=== PATIENT | female | born 1945 | race Caucasian/White ===

== ENCOUNTER 2023-11-25 07:00 | Day surgery (SDC) | payer OTHER ==
[2023-11-21 15:42] LABS: Absolute Basophils 0.1 K/uL (0-0.5); Absolute Eosinophils 0.2 K/uL (0-0.5); Absolute Lymphocytes (CBC) 1.6 K/uL (0.7-4.9); Absolute Monocytes 0.4 K/uL (0.1-1.3); Absolute Neutrophil 3.3 K/uL (1.8-8.0); Basophils % 1.1 % (0-1.3); Eosinophils % 3.4 % (0-4.4); Hematocrit 32.8 % (36.0-45.0); Lymphocytes % 28.4 % (15.3-44.8); MCH 27.9 pg (27.0-35.0); MCHC 33.4 g/dL (32.0-36.0); MCV 83.6 fL (80-100); MPV 7.4 fL (7.6-11.3); Monocytes % 7.2 % (3.3-12.3); Neutrophils % 59.9 % (41.7-73.7); Nucleated Red Blood Cells % 0.1 % (0-0); Platelets 333 thou/uL (152-406); RBC Red Blood Cell Count 3.93 M/uL (3.86-4.86); Red Cell Distribution Width 14.5 % (12.1-15.2)
[2023-11-21 15:46] LABS: PT Prothrombin Time 10.6 SECONDS (9.5-12.5); PTT, Activated Partial Thromb 28.5 SECONDS (24.3-36.9); Protime INR 0.96
[2023-11-21 15:53] LABS: Anion Gap 8.5 mEq/L (5.0-15.0); Potassium 4.5 mEq/L (3.5-5.1)
--- NOTE | 2023-11-21 16:07 | RAD REPORT ---
EXAM DESCRIPTION: Archie Baldwin And Lat (2 Views)11/21/2023 3:42 pm CLINICAL HISTORY: Preop for cardiac catheterization COMPARISON: None FINDINGS: Calcified granuloma right lung Sclerosis lower right rib unchanged 2016 likely benign Lungs appear clear of acute infiltrate. Heart is normal size IMPRESSION: No acute abnormalities displayed
[2023-11-25] MEDS ORDERED: HEPA 1000U/500MLS 2,000 UNIT/1,000 ML BAG IV ONE (07:14)
[2023-11-25] MEDS ORDERED: HEPARIN 5000 UNIT/ML 1 ML VIAL ONE (07:15)
[2023-11-25] MEDS ORDERED: LIDOCAINE 1% 20 ML MDV ONE (07:15)
[2023-11-25] MEDS ORDERED: NITROGLYCERIN/D5W 50 MG/250 ML BTL IV ONE (07:15)
[2023-11-25] MEDS ORDERED: FENTANYL CITR 100 MCG/2 ML ONE (07:15)
[2023-11-25] MEDS ORDERED: ATROPINE SULF 1 MG/10 ML SYR IV ONE (07:15)
[2023-11-25] MEDS ORDERED: MIDAZOLAM HCL 2 MG/2 ML INJ ONE (07:15)
[2023-11-25] MEDS ORDERED: VERAPAMIL HCL 10 MG/4 ML VIAL IV ONE (07:15)
[2023-11-25] MEDS ORDERED: ASPIRIN 325 MG TAB ONE (07:16)
[2023-11-25] MEDS ORDERED: CLOPIDOGREL 75 MG TABLET ONE (07:16)
[2023-11-25] MEDS ORDERED: TICAGRELOR 90 MG TABLET PO ONE (07:16)
[2023-11-25] MEDS ORDERED: HEPARIN 10,000 UNIT/10 ML VIAL IV ONE (07:16)
[2023-11-25] MEDS ORDERED: NA CHLORIDE 0.9% 500 ML ONE (07:18)
[2023-11-25 07:54] VITALS: TEMP 97.5
--- NOTE | 2023-11-25 11:01 | OP ---
Date of Procedure: 11/25/2023 Surgeon: Yoel Weller Rate Supervisor: Dr. Yoel Weller. Procedures Performed: 1. Selective coronary angiogram. 2. Left heart catheterization. Indication: Stable angina and abnormal stress test. Access: Right radial, 6-Gibraltarian sheath, closed by TR band. Sedation: Done with 1 of versed and 50 of fentanyl. Complications: None. Bleeding: Less than 10 cc. Description Of Procedure: After risks, benefits, and alternatives were explained to the patient, the patient agreed and signed informed consents. The patient was brought to the cardiac catheterization laboratory, prepped and draped in the usual sterile fashion. Then, we accessed the right radial sheath using a 6-Gibraltarian micropuncture. A 6-Gibraltarian Slender sheath was advanced into the radial artery. Next, we used a [place] 4 catheter and was advanced over a J-wire into the aortic arch and that was used to cross the LV. LVEDP was obtained, pullback did not show any significant gradient, and the catheter used for selective coronary angiogram of the left main, LAD, left circ and RCA arteries. At the end of the procedure, catheter was removed over a J-wire and sheath was closed with the TR band. The patient was moved to Recovery without any complications. Findings: 1. Left main: Normal. 2. LAD: Diffuse mild luminal irregularities, mid diffuse 20% to 30% disease, and distal mild luminal irregularities. 3. Diagonal 2 got an ostial 60% disease with small artery. 4. Left circumflex mild LI. 5. RCA: Proximal diffuse 20% to 30% disease with mild luminal irregularities. Assessment: Mild nonobstructive coronary artery disease. Plan: Continue medical management. VIDA/YORDY Voice ID: [id number] Report ID: [id number] ERA
[2023-11-25 11:41] VITALS: BP 122/64; O2SAT 60
--- NOTE | 2023-11-25 14:30 | EKG ---
Test Date: 2023-11-21 Test Time: 15:26:46 Rn Advice: CARO MEASUREMENT RESULTS: Intervals: Rate: 66 OK: 162 QRSD: 70 QT: 410 QTc: 429 Greene: P: 66 OK: 162 QRS: 0 T: 56 INTERPRETIVE STATEMENTS: Sinus rhythm with premature atrial complexes Otherwise normal ECG No previous ECG available for comparison Electronically Signed On 11-25-23 14:17:46 CDT by Tariq Dumont
== END 2023-11-25 10:45 | disposition home or self-care (01) ==
LOC: CCL 07:00
PROVIDERS: ATTEND Internal Medicine
DX: I25.118 Atherosclerotic heart disease of native coronary artery with other forms of angina pectoris (principal); R00.2 Palpitations; I10 Essential (primary) hypertension; E78.2 Mixed hyperlipidemia; Z79.899 Other long term (current) drug therapy; Z82.49 Family history of ischemic heart disease and other diseases of the circulatory system
CPT/HCPCS: 93005; 85025; 80048; 36415; 83721; 85610; 85730; 71046; 93458; 76937; C1893; Q9966; J1644; J2001; J2250; J3010; J7040; 99152; 99153; J0461